=== PATIENT | male | born 2000 | race African-American/Black ===

== ENCOUNTER 2023-12-22 16:14 | Emergency (ER) | payer SELFPAY ==
[2023-12-22 17:17] LABS: Absolute Lymphocytes (CBC) 2.1 K/uL (0.7-4.9); Absolute Monocytes 0.9 K/uL (0.1-1.3); Absolute Neutrophil 6.8 K/uL (1.8-8.0); Basophils % 0.4 % (0-1.3); Eosinophils % 0.1 % (0-4.4); Hematocrit 48.6 % (39.6-49.0); Hemoglobin 16.5 g/dL (13.6-17.9); MCH 30.2 pg (27.0-35.0); MCHC 33.8 g/dL (32.0-36.0); MCV 89.2 fL (80-100); MPV 8.2 fL (7.6-11.3); Monocytes % 9.6 % (3.3-12.3); Neutrophils % 68.9 % (41.7-73.7); Platelets 238 thou/uL (152-406); RBC Red Blood Cell Count 5.46 M/uL (4.33-5.43); Red Cell Distribution Width 13.4 % (12.1-15.2)
[2023-12-22 17:21] LABS: Sqamous Epithelial <5 /HPF (None Seen); Urine Bacteria None Seen /HPF (<20); Urine Bilirubin NEGATIVE (Negative); Urine Blood Negative (Negative); Urine Clarity Clear (Clear); Urine Color Yellow (Yellow); Urine Culture Reflex Order NOT NEEDED; Urine Glucose NEGATIVE (Negative); Urine Ketones NEGATIVE (Negative); Urine Microscopic Reflex YN ORDER UMIC; Urine Mucus Slight /HPF (None Seen); Urine Nitrite NEGATIVE (Negative); Urine Protein 1+ (Negative); Urine RBC <5 /HPF (None Seen); Urine Urobilinogen Normal (Normal); Urine WBC <5 /HPF (<5)
[2023-12-22 17:33] LABS: Albumin 4.1 g/dL (3.4-5.0); Bilirubin Total 0.7 mg/dL (0.2-1.0); Globulin 4.2 g/dL (2.3-3.5); Protein, Total 8.3 g/dL (6.4-8.2)
[2023-12-22 18:22] LABS: SARS-CoV-2 Antigen CONTROL BLUE LINE VIS/BG OK; SARS-CoV-2 Antigen Rapid Res Negative (Negative)
[2023-12-22] MEDS ORDERED: NA CHLORIDE 0.9% 1,000 ML ONE (18:40)
[2023-12-22] MEDS ORDERED: ONDANSETRON 4 MG/2 ML VIAL ONE (18:40)
--- NOTE | 2023-12-22 18:54 | RAD REPORT ---
EXAM DESCRIPTION: CT - Abdomen Pelvis W Contrast - 12/22/2023 5:31 pm CLINICAL HISTORY: ABD PAIN COMPARISON: No comparisons TECHNIQUE: Thin cut axial CT imaging of the abdomen and pelvis was performed following intravenous a dministration of iodinated contrast. Multiplanar reformats were generated and reviewed. All CT scans are performed using dose optimization technique as appropriate and may include automated exposure control or mA/KV adjustment according to patient size. FINDINGS: No suspicious findings in the lung bases. The liver, spleen, adrenal glands, and pancreas show no suspicious findings. Gallbladder and biliary tree are also without suspicious finding. Symmetric renal function is seen with no hydronephrosis or suspicious renal mass. No dilated bowel loops or bowel wall thickening. Appendix is unremarkable. No free air, free fluid or inflammatory stranding. Small umbilical hernia containing fat. Diastasis recti. No suspicious mass o r bulky lymphadenopathy. The urinary bladder is decompressed limiting evaluation. No suspicious bony findings. IMPRESSION: No acute intra-abdominal process. Incidental findings as above.
--- NOTE | 2023-12-22 20:08 | ER ---
Nurse's Notes [facility] Name: Harshil Trinidad Age: 23 yrs Sex: Male : 2000 Arrival Date: 12/22/2023 Time: 16:14 Bed 12 Private MD: Diagnosis: Nausea with vomiting, unspecified Presentation: 12/21 16:33 Chief complaint: Patient states: VOMITING STARTED TODAY AT 1000. TRIED VITAMINS AND db JUICE WAS NOT ABLE TO TOLERATE. Coronavirus screen: Client denies travel out of the [place] in the last 14 days. At this time, the client does not indicate any symptoms associated with coronavirus-19. Ebola Screen: Patient negative for fever greater than or equal to 101.5 degrees Fahrenheit, and additional compatible Ebola Virus Disease symptoms Patient denies exposure to infectious person. Patient denies travel to an Ebola-affected area in the 21 days before illness onset. No symptoms or risks identified at this time. Initial Sepsis Screen: Does the patient meet any 2 criteria? No. Patient's initial sepsis screen is negative. Does the patient have a suspected source of infection? No. Patient's initial sepsis screen is negative. Risk Assessment: Do you want to hurt yourself or someone else? Patient reports no desire to harm self or others. Onset of symptoms was December 22, 2023. 16:33 Method Of Arrival: Ambulatory db 16:33 Acuity: BILL 3 db Triage Assessment: 16:37 General: Appears in no apparent distress. comfortable, Behavior is calm, cooperative. db Pain: Complains of pain in abdomen. EENT: Reports nasal congestion. Neuro: Level of Consciousness is awake, alert, obeys commands, Oriented to person, place, time, situation. Respiratory: Airway is patent Respiratory effort is even, unlabored, Respiratory pattern is regular, symmetrical. GI: Reports lower abdominal pain, upper abdominal pain, nausea, vomiting. Historical: - Allergies: 16:37 No Known Allergies; db - Home Meds: 16:37 None [Active]; db - PMHx: 16:37 None; db - Immunization history:: Adult Immunizations unknown. - Infectious Disease History:: Denies. - Social history:: Smoking status: Patient denies any tobacco usage or history of. Screenin:49 [facility] ED Fall Risk Assessment (Adult) History of falling in the last 3 months, me1 including since admission No falls in past 3 months (0 pts) Confusion or Disorientation No (0 pts) Intoxicated or Sedated No (0 pts) Impaired Gait No (0 pts) Mobility Assist Device Used No (0 pt) Altered Elimination No (0 pt) Score/Fall Risk Level 0 - 2 = Low Risk Maintained a safe environment, Provided non-skid footwear, Hourly rounding (assess needs \T\ fall precautionary measures) done. Abuse screen: Denies threats or abuse. Nutritional screening: No deficits noted. Tuberculosis screening: No symptoms or risk factors identified. Assessment: 18:49 General: Appears uncomfortable, ill, well groomed, well developed, well nourished, me1 Behavior is calm, cooperative, appropriate for age, Reports n/v that started this morning. Pain: Complains of pain in right lower quadrant and abdomen Pain does not radiate. Pain currently is 3 out of 10 on a pain scale. Quality of pain is described as tender, Pain began gradually, 4 hours ago. Is continuous. Neuro: Level of Consciousness is awake, alert, obeys commands, Oriented to person, place, time, situation, Appropriate for age. Cardiovascular: Patient's skin is warm and dry. Respiratory: Airway is patent Trachea midline Respiratory effort is even, unlabored, Respiratory pattern is regular, symmetrical. GI: Abdomen is round non-distended, obese, Bowel sounds present X 4 quads. Reports nausea, vomiting, since this morning. : No signs and/or symptoms were reported regarding the genitourinary system. EENT: No signs and/or symptoms were reported regarding the EENT system. Derm: Skin is intact, is healthy with good turgor, Skin is pink, warm \T\ dry. Musculoskeletal: No signs and/or symptoms reported regarding the musculoskeletal system. Vital Signs: 16:33 BP 132 / 78; Pulse 85; Resp 16; Temp 98.5; Pulse Ox 97% ; Weight 140.61 kg; Height 5 db ft. 11 in. ; 18:48 BP 117 / 71; Pulse 83; Resp 16; Pulse Ox 95% on R/A; me1 20:06 BP 124 / 70; Pulse 72; Resp 16; Pulse Ox 99% on R/A; me1 16:33 Body Mass Index 43.24 (140.61 kg, 180.34 cm) db ED Course: 16:23 Patient arrived in ED. mg5 16:23 Mecca Perez [facility]C [facility]. sb4 16:23 Joseph Grant MD is Attending Physician. sb4 16:36 Triage completed. db 16:37 Arm band placed on Patient placed in an exam room. db 17:14 CBC with Diff Sent. bc6 17:14 CMP Sent. bc6 17:14 Lipase Sent. bc6 17:14 Urinalysis w/ reflexes Sent. bc6 17:14 Initial lab(s) drawn, by me, sent to lab. Inserted saline lock: 20 gauge in left bc6 antecubital area, using aseptic technique. Blood collected. Flushed with 10 mL NS. 17:32 CT Abd/Pelvis - IV Contrast Only In Process Unspecified. EDMS 17:54 Flu Sent. bc6 17:55 SARS RAPID Sent. bc6 18:39 Nelly Pruett, RN is Primary Nurse. me1 18:49 Patient has correct armband on for positive identification. Bed in low position. Call me1 light in reach. Side rails up X2. Provided Education on: POC. Verbalized understanding. . 18:49 Client placed on continuous cardiac and pulse oximetry monitoring. NIBP monitoring me1 applied. Pulse ox on. NIBP on. 18:49 No provider procedures requiring assistance completed. me1 20:16 IV discontinued, intact, bleeding controlled, No redness/swelling at site. Pressure me1 dressing applied. Administered Medications: 18:48 Drug: NS 0.9% IV 1000 ml IV at 1 bolus Per protocol; 1000 mL bolus Route: IV; Rate: 1 me1 bolus; Site: left antecubital; 20:17 Follow up: Response: No adverse reaction; IV Status: Completed infusion; IV Intake: me1 1000ml 18:48 Drug: Ondansetron IVP 4 mg IVP once; over 2 minutes Route: IVP; Site: left antecubital; me1 20:04 Follow up: Response: No adverse reaction; Nausea is decreased me1 Medication: 18:49 VIS not applicable for this client. me1 Intake: 20:17 IV: 1000ml; Total: 1000ml. me1 Outcome: 20:08 Discharge ordered by . sb4 20:16 Discharged to home ambulatory, me1 20:16 Condition: stable 20:16 Discharge instructions given to patient, Instructed on discharge instructions, follow up and referral plans. medication usage, Demonstrated understanding of instructions, follow-up care, medications, Prescriptions given X 1, 20:16 Patient left the ED. me1 Signatures: Dispatcher [employer] Kinjal Anaya, RN RN Mecca Warner PA-C PADick sb4 Elsa Escalante bc6 Nelly Pruett RN RN me1 [place] mg5 Corrections: (The following items were deleted from the chart) 16:37 16:37 PSHx: Unable to Obtain; mazin retana
--- NOTE | 2023-12-22 20:08 | EDPHYS ---
Physician Documentation [facility] Name: Harshil Trinidad Age: 23 yrs Sex: Male : 2000 Arrival Date: 12/22/2023 Time: 16:14 Bed 12 Private MD: ED Physician Joseph Grant HPI: 12/21 16:54 This 23 yrs old Black Male presents to ER via Ambulatory with complaints of Vomiting, sb4 Weakness. 16:54 The patient presents to the emergency department with nausea, vomiting, abdominal pain, sb4 of the right lower quadrant. Onset: The symptoms/episode began/occurred this morning. Possible causes: unknown. The symptoms are aggravated by nothing. The symptoms are alleviated by nothing. Associated signs and symptoms: The patient has no apparent associated signs or symptoms. The patient has not experienced similar symptoms in the past. The patient has not recently seen a physician. Historical: - Allergies: 16:37 No Known Allergies; db - Home Meds: 16:37 None [Active]; db - PMHx: 16:37 None; db - Immunization history:: Adult Immunizations unknown. - Infectious Disease History:: Denies. - Social history:: Smoking status: Patient denies any tobacco usage or history of. ROS: 16:54 Constitutional: Negative for fever, chills, and weight loss, sb4 16:54 Abdomen/GI: Positive for abdominal pain, nausea and vomiting, 16:54 Neuro: Positive for weakness, 16:54 All other systems are negative, Exam: 16:54 Constitutional: This is a well developed, well nourished patient who is awake, alert, sb4 and in no acute distress. Head/Face: Normocephalic, atraumatic. Eyes: Extra-ocular motions intact. Periorbital areas with no swelling, redness, or edema. ENT: Mucous membranes moist. Cardiovascular: Regular rate and rhythm with a normal S1 and S2. Respiratory: Lungs have equal breath sounds bilaterally, clear to auscultation and percussion. No rales, rhonchi or wheezes noted. No increased work of breathing, no retractions or nasal flaring. Abdomen/GI: Soft, non-tender, no distension. Skin: Warm, dry with normal turgor. Normal color with no rashes, no lesions, and no evidence of cellulitis. MS/ Extremity: Pulses equal, no cyanosis. Neurovascular intact. Full, normal range of motion. Neuro: Awake and alert, GCS 15, oriented to person, place, time, and situation. Motor strength 5/5 in all extremities. Sensory grossly intact. Vital Signs: 16:33 BP 132 / 78; Pulse 85; Resp 16; Temp 98.5; Pulse Ox 97% ; Weight 140.61 kg; Height 5 db ft. 11 in. ; 18:48 BP 117 / 71; Pulse 83; Resp 16; Pulse Ox 95% on R/A; me1 20:06 BP 124 / 70; Pulse 72; Resp 16; Pulse Ox 99% on R/A; me1 16:33 Body Mass Index 43.24 (140.61 kg, 180.34 cm) db MDM: 16:27 Patient medically screened. sb4 20:07 Data reviewed: vital signs, nurses notes, lab test result(s), radiologic studies, and sb4 as a result, I will discharge patient. Counseling: I had a detailed discussion with the patient and/or guardian regarding the historical points, exam findings, and any diagnostic results supporting the discharge/admit diagnosis, lab results, radiology results, to return to the emergency department if symptoms worsen or persist or if there are any questions or concerns that arise at home. 12/21 16:40 Order name: CBC with Diff; Complete Time: 17:20 sb4 12/21 16:40 Order name: CMP; Complete Time: 17:34 sb4 12/21 16:40 Order name: Lipase; Complete Time: 17:34 sb4 12/21 16:40 Order name: Urinalysis w/ reflexes; Complete Time: 17:34 sb4 12/21 17:34 Order name: SARS RAPID; Complete Time: 18:23 sb4 12/21 17:34 Order name: Flu; Complete Time: 18:23 sb4 12/21 16:40 Order name: CT Abd/Pelvis - IV Contrast Only; Complete Time: 18:58 sb4 12/21 16:40 Order name: IV Saline Lock; Complete Time: 17:13 sb4 12/21 16:40 Order name: Labs collected and sent; Complete Time: 17:13 sb4 12/21 18:58 Order name: PO challenge; Complete Time: 20:04 sb4 Administered Medications: 18:48 Drug: NS 0.9% IV 1000 ml IV at 1 bolus Per protocol; 1000 mL bolus Route: IV; Rate: 1 me1 bolus; Site: left antecubital; 20:17 Follow up: Response: No adverse reaction; IV Status: Completed infusion; IV Intake: me1 1000ml 18:48 Drug: Ondansetron IVP 4 mg IVP once; over 2 minutes Route: IVP; Site: left antecubital; me1 20:04 Follow up: Response: No adverse reaction; Nausea is decreased me1 Disposition Summary: 12/22/23 20:08 Discharge Ordered Notes: Location: Home sb4 Problem: new sb4 Symptoms: have improved sb4 Condition: Stable sb4 Diagnosis - Nausea with vomiting, unspecified sb4 Followup: sb4 - With: Emergency Department - When: As needed - Reason: Trouble breathing, Worsening of condition Discharge Instructions: - Discharge Summary Sheet sb4 - Nausea and Vomiting, Adult sb4 Forms: - Patient Portal Instructions sb4 - Leadership Thank You Letter sb4 Prescriptions: - ondansetron 8 mg Oral Tablet,disintegrating - take 1 tablet ORAL route every 8 hours; 10 tablet; Refills: 0, Product sb4 Selection Permitted Signatures: Dispatcher [employer] EDMS Kinjal Flores, RN RN Mecca Warner PAVivianaC PA-C sb4 Nelly Pruett, RN RN me1 Corrections: (The following items were deleted from the chart) 16:37 16:37 PSHx: Unable to Obtain; mazin retana 16:41 16:41 Abdomen Pelvis W Con+CT.RAD.BRZ ordered. EDMS EDMS
[2023-12-22 20:39] VITALS: TEMP 98.5
[2023-12-22 20:43] VITALS: BP 124/70; O2SAT 99
== END 2023-12-22 20:16 | disposition home or self-care (01) ==
LOC: ER 16:14
DX: R11.2 Nausea with vomiting, unspecified (principal); R53.1 Weakness; Z11.52 Encounter for screening for COVID-19
CPT/HCPCS: 36415; 74177; 80053; 81001; 83690; 85025; 87804; 87811; J2405; J7030; Q9967